=== PATIENT | male | born 1950 | race African-American/Black ===

== ENCOUNTER 2025-05-02 20:16 | Emergency (ER) | payer MEDICARE, MEDICAID ==
[~2025-05-02] VITALS: Ht 182.9 cm; Wt 83.0 kg
[2025-05-02 20:23] VITALS: O2SAT 99
[2025-05-02 23:45] VITALS: BP 171/85; PULSE 71; RESP 18; TEMP 36.9; O2SAT 100
== END 2025-05-02 23:57 | disposition home or self-care (01) ==
LOC: ER 20:16
DX: N40.1 Benign prostatic hyperplasia with lower urinary tract symptoms (principal); R33.8 Other retention of urine
CPT/HCPCS: 51702; 99284

== ENCOUNTER 2025-05-03 07:30 | Emergency (ER) | payer MEDICARE, MEDICAID ==
[~2025-05-03] VITALS: Ht 188 cm; Wt 85.0 kg
[2025-05-03 07:34] VITALS: BP 155/85; TEMP 36.9; O2SAT 99
[2025-05-03 07:35] VITALS: PULSE 102; RESP 20; O2SAT 99
== END 2025-05-03 08:36 | disposition left against medical advice (07) ==
LOC: ER 07:30
DX: Z53.21 Procedure and treatment not carried out due to patient leaving prior to being seen by health care provider (principal)